=== PATIENT | female | born 1935 | race Caucasian/White ===

== ENCOUNTER 2018-05-05 05:50 | Inpatient (IN) ==
[2018-05-05] MEDS ORDERED: DIAZEPAM 2 MG TABLET PO ONE (06:00)
[2018-05-05] MEDS ORDERED: VANCOMYCIN INJ 1,000 MG in SODIUM CHLORIDE 0.9% 250 ML IV ONE (06:00)
[2018-05-05] MEDS ORDERED: ceFAZolin 1,000 MG in SYRINGE 1 EACH IV ONE (06:00)
[2018-05-05] MEDS ORDERED: ACETAMINOPHEN 500 MG TABLET PO ONE (06:00)
[2018-05-05] MEDS ORDERED: GABAPENTIN 400 MG CAPSULE PO ONE (06:00)
[2018-05-05] MEDS ORDERED: FAMOTIDINE 20 MG TABLET PO ONE (06:00)
[2018-05-05] MEDS ORDERED: ACETAMINOPHEN 500 MG TABLET ONE (06:17)
[2018-05-05] MEDS ORDERED: FAMOTIDINE 20 MG TABLET ONE (06:17)
[2018-05-05] MEDS ORDERED: GABAPENTIN 400 MG CAPSULE ONE (06:17)
[2018-05-05] MEDS ORDERED: ceFAZolin 1,000 MG VIAL ONE (06:17)
[2018-05-05] MEDS ORDERED: VANCOMYCIN 1,000 MG VIAL ONE (06:17)
[2018-05-05] MEDS: LACTATED RINGERS 1,000 ML IV SCH ×2 (06:29→08:31)
[2018-05-05] MEDS ORDERED: BUPIVACAINE SPINAL 0.75% 2 ML AMP SPINAL ONE (06:47)
[2018-05-05] MEDS ORDERED: MORPHINE 4 MG/1 ML VIAL IV PRN ×2 (07:13→10:16)
[2018-05-05] MEDS ORDERED: diphenhydrAMINE CAP 25 MG CAPSULE PO PRN (07:13)
[2018-05-05] MEDS ORDERED: BISACODYL 10 MG SUPP RECTAL PRN (07:13)
[2018-05-05] MEDS ORDERED: TEMAZEPAM 7.5 MG CAPSULE PO PRN (07:13)
[2018-05-05] MEDS ORDERED: MAGNESIUM HYDROXIDE SUSP 30 ML UDCUP PO PRN (07:13)
[2018-05-05] MEDS ORDERED: LACTULOSE 20 GM/30 ML UDCUP PO PRN (07:13)
[2018-05-05] MEDS ORDERED: ONDANSETRON 4 MG/2 ML VIAL IV PRN (07:13)
[2018-05-05] MEDS ORDERED: PROMETHAZINE 25 MG/1 ML VIAL IM PRN (07:13)
[2018-05-05] MEDS ORDERED: NALOXONE 0.4 MG/ML VIAL IV PRN (07:13)
[2018-05-05] MEDS ORDERED: TRANEXAMIC ACID 1,000 MG/10 ML VIAL ONE (07:54)
[2018-05-05] MEDS ORDERED: ROPIVACAINE 0.5% 30 ML VIAL ONE ×2 (08:20→08:45)
[2018-05-05] MEDS: MORPHINE PCA 30 MG/30 ML SYRINGE IV SCH (09:14)
[2018-05-05] MEDS ORDERED: MORPHINE PCA 30 MG/30 ML SYRINGE IV ONE (09:14)
[2018-05-05] MEDS: LISINOPRIL/HCTZ 20-25 MG TABLET PO SCH ×3 (10:48→11:49)
[2018-05-05] MEDS: ASPIRIN EC 81 MG TABLET PO SCH (10:52)
[2018-05-05] MEDS: PANTOPRAZOLE 40 MG TABLET PO SCH (10:52)
[2018-05-05] MEDS: DOCUSATE SODIUM 100 MG CAPSULE PO SCH ×2 (10:52→20:17)
[2018-05-05] MEDS: CALCIUM (CARBONATE)/VITAMIN D 600 MG-400 UNIT TABLET PO SCH (10:53)
[2018-05-05] MEDS: MULTIVITAMIN (CENTRUM) TABLET PO SCH (10:53)
[2018-05-05] MEDS: MELOXICAM 7.5 MG TABLET PO SCH (10:53)
[2018-05-05] MEDS: CETIRIZINE 10 MG TABLET PO SCH (10:56)
[2018-05-05] MEDS ORDERED: PROPOFOL 200 MG/20 ML VIAL IV ONE (14:17)
[2018-05-05] MEDS ORDERED: MIDAZOLAM 2 MG/2 ML VIAL ONE ×2 (14:17→14:25)
[2018-05-05] MEDS ORDERED: KETOROLAC 30 MG/1 ML VIAL ONE (14:17)
[2018-05-05] MEDS ORDERED: PROPOFOL 500 MG/50 ML BOTTLE IV ONE (14:18)
[2018-05-05] MEDS: ceFAZolin 1,000 MG in SYRINGE 1 EACH IV SCH ×2 (14:20→21:39)
[2018-05-05] MEDS ORDERED: LACTATED RINGERS 1,000 ML IV ONE (14:25)
[2018-05-05] MEDS: buPROPion 100 MG TABLET PO SCH (19:21)
[2018-05-05] MEDS: SIMVASTATIN 10 MG TABLET PO SCH (19:21)
[2018-05-05] MEDS: LATANOPROST 0.005% OPH SOLN 2.5 ML BOTTLE BOTH EYES SCH (20:17)
[2018-05-06 05:17] LABS: Basophils % 0.1 % (0.0-0.8); Eosinophils % 0.4 % (0.00-10.9); Hematocrit 31.1 VOL% (35.7-47.0); Immature Granulocytes % 0.4 %; Immature Granulocytes Absolute 0.04 #; Lymphocytes % 11.5 % (21.3-54.2); Mean Corpuscular HGB Conc 32.2 GM/DL (32-36); Mean Corpuscular Hemoglobin 26 PG (27-34); Mean Corpuscular Volume 80.8 FL (87-102); Mean Platelet Volume 9.3 FL (9.6-12.0); Monocytes % 10.9 % (1.7-12.7); Neutrophils # 6.9 10*3/uL (1.4-7.4); Neutrophils % 76.7 % (38.7-73.9); Platelet Count 210 T/CUMM (130-400); Red Blood Count 3.85 MC/CUMM (3.8-5.5); Red Cell Distribution Width 15.1 % (9.3-17.3)
[2018-05-06] MEDS: FONDAPARINUX 2.5 MG/0.5 ML SYRINGE SUBCUT SCH (05:51)
[2018-05-06] MEDS: LACTATED RINGERS 1,000 ML IV SCH (05:56)
[2018-05-06 06:18] LABS: Osmolality,Calculated 265.5 MOS/KG (273-304); Potassium 3.2 MMOL/L (3.5-5.1)
[2018-05-06] MEDS: DOCUSATE SODIUM 100 MG CAPSULE PO SCH ×2 (09:17→20:49)
[2018-05-06] MEDS: LISINOPRIL/HCTZ 20-25 MG TABLET PO SCH (09:17)
[2018-05-06] MEDS: PANTOPRAZOLE 40 MG TABLET PO SCH (09:17)
[2018-05-06] MEDS: CETIRIZINE 10 MG TABLET PO SCH (09:17)
[2018-05-06] MEDS: MELOXICAM 7.5 MG TABLET PO SCH (09:17)
[2018-05-06] MEDS: CALCIUM (CARBONATE)/VITAMIN D 600 MG-400 UNIT TABLET PO SCH (09:17)
[2018-05-06] MEDS: ASPIRIN EC 81 MG TABLET PO SCH (09:17)
[2018-05-06] MEDS: MULTIVITAMIN (CENTRUM) TABLET PO SCH (09:18)
[2018-05-06] MEDS: MORPHINE PCA 30 MG/30 ML SYRINGE IV SCH (10:15)
[2018-05-06] MEDS: amLODIPine 5 MG TABLET PO SCH (12:46)
[2018-05-06] MEDS: SIMVASTATIN 10 MG TABLET PO SCH (18:42)
[2018-05-06] MEDS: buPROPion 100 MG TABLET PO SCH (18:42)
[2018-05-06] MEDS: LATANOPROST 0.005% OPH SOLN 2.5 ML BOTTLE BOTH EYES SCH (20:49)
[2018-05-07 05:16] LABS: Basophils % 0.1 % (0.0-0.8); Eosinophils % 0.1 % (0.00-10.9); Hematocrit 31.1 VOL% (35.7-47.0); Hemoglobin 10.2 GM/DL (12.0-16.0); Immature Granulocytes % 0.7 %; Immature Granulocytes Absolute 0.07 #; Lymphocytes % 9.1 % (21.3-54.2); Mean Corpuscular HGB Conc 32.8 GM/DL (32-36); Mean Corpuscular Hemoglobin 26 PG (27-34); Mean Corpuscular Volume 79.7 FL (87-102); Monocytes # 1.1 10*3/uL (0.11-0.8); Monocytes % 10.1 % (1.7-12.7); Neutrophils # 8.5 10*3/uL (1.4-7.4); Neutrophils % 79.9 % (38.7-73.9); Platelet Count 184 T/CUMM (130-400); Red Cell Distribution Width 15.1 % (9.3-17.3); White Blood Count 10.7 T/CUMM (4-12)
[2018-05-07] MEDS: FONDAPARINUX 2.5 MG/0.5 ML SYRINGE SUBCUT SCH (05:48)
[2018-05-07] MEDS: ASPIRIN EC 81 MG TABLET PO SCH (09:11)
[2018-05-07] MEDS: MULTIVITAMIN (CENTRUM) TABLET PO SCH (09:11)
[2018-05-07] MEDS: LISINOPRIL/HCTZ 20-25 MG TABLET PO SCH (09:12)
[2018-05-07] MEDS: amLODIPine 5 MG TABLET PO SCH (09:12)
[2018-05-07] MEDS: MELOXICAM 7.5 MG TABLET PO SCH (09:12)
[2018-05-07] MEDS: PANTOPRAZOLE 40 MG TABLET PO SCH (09:13)
[2018-05-07] MEDS: CETIRIZINE 10 MG TABLET PO SCH (09:13)
[2018-05-07] MEDS: DOCUSATE SODIUM 100 MG CAPSULE PO SCH ×2 (09:22→21:03)
[2018-05-07] MEDS: CALCIUM (CARBONATE)/VITAMIN D 600 MG-400 UNIT TABLET PO SCH (09:22)
[2018-05-07] MEDS ORDERED: amLODIPine 2.5 MG TABLET PO ONE (10:53)
[2018-05-07] MEDS: SIMVASTATIN 10 MG TABLET PO SCH (19:04)
[2018-05-07] MEDS: buPROPion 100 MG TABLET PO SCH (19:04)
[2018-05-07] MEDS: LATANOPROST 0.005% OPH SOLN 2.5 ML BOTTLE BOTH EYES SCH (21:02)
[2018-05-08] MEDS: FONDAPARINUX 2.5 MG/0.5 ML SYRINGE SUBCUT SCH (05:52)
[2018-05-08] MEDS: ASPIRIN EC 81 MG TABLET PO SCH (09:45)
[2018-05-08] MEDS: CALCIUM (CARBONATE)/VITAMIN D 600 MG-400 UNIT TABLET PO SCH (09:45)
[2018-05-08] MEDS: DOCUSATE SODIUM 100 MG CAPSULE PO SCH ×2 (09:47→21:15)
[2018-05-08] MEDS: MULTIVITAMIN (CENTRUM) TABLET PO SCH (09:47)
[2018-05-08] MEDS: MELOXICAM 7.5 MG TABLET PO SCH (09:47)
[2018-05-08] MEDS: amLODIPine 2.5 MG TABLET PO SCH (09:48)
[2018-05-08] MEDS: CETIRIZINE 10 MG TABLET PO SCH (09:50)
[2018-05-08] MEDS: PANTOPRAZOLE 40 MG TABLET PO SCH (09:50)
[2018-05-08] MEDS: LISINOPRIL/HCTZ 20-25 MG TABLET PO SCH (19:44)
[2018-05-08] MEDS: buPROPion 100 MG TABLET PO SCH (19:44)
[2018-05-08] MEDS: SIMVASTATIN 10 MG TABLET PO SCH (19:44)
[2018-05-08] MEDS: LATANOPROST 0.005% OPH SOLN 2.5 ML BOTTLE BOTH EYES SCH (21:15)
[2018-05-09] MEDS: CALCIUM (CARBONATE)/VITAMIN D 600 MG-400 UNIT TABLET PO SCH (10:15)
[2018-05-09] MEDS: DOCUSATE SODIUM 100 MG CAPSULE PO SCH ×2 (10:15→20:29)
[2018-05-09] MEDS: MELOXICAM 7.5 MG TABLET PO SCH (10:16)
[2018-05-09] MEDS: PANTOPRAZOLE 40 MG TABLET PO SCH (10:16)
[2018-05-09] MEDS: LISINOPRIL/HCTZ 20-25 MG TABLET PO SCH (10:16)
[2018-05-09] MEDS: MULTIVITAMIN (CENTRUM) TABLET PO SCH (10:17)
[2018-05-09] MEDS: ASPIRIN EC 81 MG TABLET PO SCH (10:17)
[2018-05-09] MEDS: CETIRIZINE 10 MG TABLET PO SCH (10:17)
[2018-05-09] MEDS: amLODIPine 2.5 MG TABLET PO SCH (11:02)
[2018-05-09] MEDS: buPROPion 100 MG TABLET PO SCH (19:05)
[2018-05-09] MEDS: SIMVASTATIN 10 MG TABLET PO SCH (19:05)
[2018-05-09] MEDS: LATANOPROST 0.005% OPH SOLN 2.5 ML BOTTLE BOTH EYES SCH (20:30)
[2018-05-09] MEDS: LACTATED RINGERS 1,000 ML IV SCH (23:16)
[2018-05-10] MEDS: LISINOPRIL/HCTZ 20-25 MG TABLET PO SCH (09:35)
[2018-05-10] MEDS: CALCIUM (CARBONATE)/VITAMIN D 600 MG-400 UNIT TABLET PO SCH (09:36)
[2018-05-10] MEDS: MULTIVITAMIN (CENTRUM) TABLET PO SCH (09:36)
[2018-05-10] MEDS: MELOXICAM 7.5 MG TABLET PO SCH (09:36)
[2018-05-10] MEDS: DOCUSATE SODIUM 100 MG CAPSULE PO SCH (09:36)
[2018-05-10] MEDS: PANTOPRAZOLE 40 MG TABLET PO SCH (09:37)
[2018-05-10] MEDS: amLODIPine 2.5 MG TABLET PO SCH (09:37)
[2018-05-10] MEDS: CETIRIZINE 10 MG TABLET PO SCH (09:37)
[2018-05-10] MEDS: ASPIRIN EC 81 MG TABLET PO SCH (09:37)
[2018-05-10 11:58] VITALS: BP 130/74
== END 2018-05-10 13:42 | disposition swing bed (61) | DRG 470 ==
LOC: N.OR 05:50 → N.SDSINP 05:52 → N.3E 09:43
PROVIDERS: ADMIT Orthopaedic Surgery; ATTEND Orthopaedic Surgery

== ENCOUNTER 2018-09-27 15:33 | Inpatient (IN) ==
[2018-09-27] MEDS ORDERED: ONDANSETRON 4 MG/2 ML VIAL IV STA (17:02)
[2018-09-27] MEDS ORDERED: SODIUM CHLORIDE 0.9% 500 ML IV STA (17:02)
[2018-09-27] MEDS ORDERED: LABETALOL 20 MG/4 ML SYRINGE IV STA (17:04)
[2018-09-27 17:13] LABS: Basophils % 0.5 % (0.0-0.8); Eosinophils # 0.1 10*3/uL (0.0-0.87); Hematocrit 36.9 VOL% (35.7-47.0); Hemoglobin 12.1 GM/DL (12.0-16.0); Immature Granulocytes Absolute 0.06 #; Lymphocytes # 1.1 10*3/uL (1.4-4.0); Lymphocytes % 17.3 % (21.3-54.2); Mean Corpuscular HGB Conc 32.8 GM/DL (32-36); Mean Corpuscular Hemoglobin 25 PG (27-34); Mean Platelet Volume 9.4 FL (9.6-12.0); Monocytes # 0.5 10*3/uL (0.11-0.8); Monocytes % 8.7 % (1.7-12.7); Neutrophils # 4.4 10*3/uL (1.4-7.4); Neutrophils % 71.5 % (38.7-73.9); Platelet Count 291 T/CUMM (130-400); Red Blood Count 4.79 MC/CUMM (3.8-5.5); Red Cell Distribution Width 15.3 % (9.3-17.3); White Blood Count 6.1 T/CUMM (4-12)
[2018-09-27 17:19] LABS: PT Patient Result 10.5 SECS
[2018-09-27 17:29] LABS: Alanine Aminotransferase 22 U/L (13-56); Albumin 3.7 G/DL (3.4-5.0); Alkaline Phosphatase 81 U/L (45-117); Aspartate Amino Transferase 22 U/L (0-37); Blood Urea Nitrogen 16 MG/DL (7-18); Calcium 8.9 MG/DL (8.5-10.1); Glucose 92 MG/DL (74-106); Osmolality,Calculated 253.4 MOS/KG (273-304); Potassium 3.8 MMOL/L (3.5-5.1); Sodium 126 MMOL/L (136-145); Total Protein 7.3 G/DL (6.4-8.3); Troponin I < 0.015 NG/ML (0.00-0.045)
[2018-09-27 18:27] LABS: Apearance,Urine CLEAR (Clear); Bilirubin,Urine Negative (Negative); Blood, Urine Negative (Negative); Glucose,Urine (UA) Negative (Negative); Ketones,Urine Negative (Negative); Nitrite,Urine Negative (Negative); Protein,Urine Negative; Urine Color Straw (Yellow); Urine Specific Gravity 1.004 (1.001-1.035); Urine Urobilinogen < 2.0 EU/DL (0.2-1.0)
[2018-09-27] MEDS ORDERED: amLODIPine 10 MG TABLET PO SCH (18:31)
[2018-09-27] MEDS ORDERED: ACETAMINOPHEN 325 MG TABLET PO PRN (19:45)
[2018-09-27] MEDS ORDERED: ENOXAPARIN 30 MG/0.3 ML SYRINGE SUBCUT SCH (21:00)
[2018-09-27] MEDS: SIMVASTATIN 20 MG TABLET PO SCH (21:08)
[2018-09-27] MEDS: LATANOPROST 0.005% OPH SOLN 2.5 ML BOTTLE BOTH EYES SCH (21:09)
[2018-09-27] MEDS: levETIRAcetam 500 MG TABLET PO SCH (21:09)
[2018-09-27] MEDS: LISINOPRIL 10 MG TABLET PO SCH (21:09)
[2018-09-28] MEDS: LISINOPRIL 10 MG TABLET PO SCH (00:19)
[2018-09-28 05:52] LABS: Basophils % 0.6 % (0.0-0.8); Eosinophils # 0.1 10*3/uL (0.0-0.87); Eosinophils % 2.4 % (0.00-10.9); Hematocrit 33.5 VOL% (35.7-47.0); Hemoglobin 10.6 GM/DL (12.0-16.0); Immature Granulocytes % 1.3 %; Immature Granulocytes Absolute 0.07 #; Lymphocytes # 1.2 10*3/uL (1.4-4.0); Lymphocytes % 22.5 % (21.3-54.2); Mean Corpuscular HGB Conc 31.6 GM/DL (32-36); Mean Corpuscular Hemoglobin 25 PG (27-34); Mean Corpuscular Volume 78.8 FL (87-102); Mean Platelet Volume 9.8 FL (9.6-12.0); Monocytes # 0.6 10*3/uL (0.11-0.8); Monocytes % 11.7 % (1.7-12.7); Neutrophils # 3.3 10*3/uL (1.4-7.4); Neutrophils % 61.5 % (38.7-73.9); Platelet Count 247 T/CUMM (130-400); Red Blood Count 4.25 MC/CUMM (3.8-5.5); Red Cell Distribution Width 15.7 % (9.3-17.3); White Blood Count 5.4 T/CUMM (4-12)
[2018-09-28 06:27] LABS: Bilirubin,Total 0.5 MG/DL (0.2-1.0); Calcium 8.4 MG/DL (8.5-10.1); Osmolality,Calculated 264.5 MOS/KG (273-304); Potassium 3.7 MMOL/L (3.5-5.1); Total Protein 6.2 G/DL (6.4-8.3)
[2018-09-28 06:28] LABS: Risk Ratio 2.3; VLDL CHOLESTEROL 16.4 MG/DL
[2018-09-28 09:05] LABS: Calcium 8.4 MG/DL (8.5-10.1); Osmolality,Calculated 264.5 MOS/KG (273-304); Potassium 3.7 MMOL/L (3.5-5.1)
[2018-09-28] MEDS: PANTOPRAZOLE 40 MG TABLET PO SCH (12:03)
[2018-09-28] MEDS: ASPIRIN EC 81 MG TABLET PO SCH (12:03)
[2018-09-28] MEDS: levETIRAcetam 500 MG TABLET PO SCH ×2 (12:03→21:41)
[2018-09-28] MEDS: POLYETHYLENE GLYCOL POWDER 17 GM PACK PO SCH (12:03)
[2018-09-28] MEDS ORDERED: ENOXAPARIN 40 MG/0.4 ML SYRINGE SUBCUT SCH (21:00)
[2018-09-28] MEDS: LATANOPROST 0.005% OPH SOLN 2.5 ML BOTTLE BOTH EYES SCH (21:40)
[2018-09-28] MEDS: SIMVASTATIN 20 MG TABLET PO SCH (21:41)
[2018-09-29 05:01] LABS: Basophils % 0.6 % (0.0-0.8); Eosinophils # 0.2 10*3/uL (0.0-0.87); Eosinophils % 2.9 % (0.00-10.9); Hematocrit 34.7 VOL% (35.7-47.0); Hemoglobin 10.9 GM/DL (12.0-16.0); Immature Granulocytes Absolute 0.05 #; Lymphocytes # 1.4 10*3/uL (1.4-4.0); Mean Corpuscular HGB Conc 31.4 GM/DL (32-36); Mean Corpuscular Hemoglobin 25 PG (27-34); Mean Corpuscular Volume 79.8 FL (87-102); Mean Platelet Volume 9.2 FL (9.6-12.0); Monocytes # 0.6 10*3/uL (0.11-0.8); Monocytes % 11.7 % (1.7-12.7); Neutrophils % 57.8 % (38.7-73.9); Platelet Count 244 T/CUMM (130-400); Red Blood Count 4.35 MC/CUMM (3.8-5.5); Red Cell Distribution Width 15.9 % (9.3-17.3); White Blood Count 5.2 T/CUMM (4-12)
[2018-09-29 05:15] LABS: Calcium 8.5 MG/DL (8.5-10.1); Osmolality,Calculated 270.1 MOS/KG (273-304); Potassium 4.3 MMOL/L (3.5-5.1)
[2018-09-29] MEDS: levETIRAcetam 500 MG TABLET PO SCH (09:34)
[2018-09-29] MEDS: POLYETHYLENE GLYCOL POWDER 17 GM PACK PO SCH (09:34)
[2018-09-29] MEDS: ASPIRIN EC 81 MG TABLET PO SCH (09:34)
[2018-09-29] MEDS: PANTOPRAZOLE 40 MG TABLET PO SCH (09:34)
[2018-09-29 13:35] VITALS: BP 130/74
== END 2018-09-29 15:42 | disposition home health service (06) | DRG 641 ==
LOC: N.ED 15:33 → N.EDINP 18:16 → N.2E 18:46
PROVIDERS: ADMIT Internal Medicine; ATTEND Internal Medicine